=== PATIENT | female | born 1995 | race African-American/Black ===

== ENCOUNTER 2021-03-09 12:35 | Emergency (ER) | payer BC ==
[2021-03-09 12:40] VITALS: TEMP 97.9
[2021-03-09] MEDS ORDERED: SODIUM CHLORIDE 0.9% 1,000 ML IV STA (12:46)
--- NOTE | 2021-03-09 12:46 | ED ---
General Adult HPI - General Chief complaint: Abdominal Pain Stated complaint: Vag Bleeding, 5wks preg Time Seen by Provider: 03/09/21 12:44 Source: patient Mode of arrival: ambulatory Limitations: no limitations - History of Present Illness Initial comments: 25-year-old female, 5 weeks , presents to the emergency department with a chief complaint of vaginal bleeding and abdominal cramping. Patient reports the cramping is mostly located in the lower abdominal region without any radiation. Patient reports the symptoms started since yesterday. She denies any alleviating or aggravating symptoms. She also reports about 2 hours ago she noted a pink color after urinating. Patient also reports she noticed the same color when she was wiping. However, she does not have any profuse vaginal bleeding. She denies any dysuria, increased urgency or frequency. Denies any nausea or vomiting or diarrhea. States she recently started taking vitamins. Her OB is Dr. Gasca from [place]. Patient is not concerned for STDs. Denies any other vaginal discharge, itching or foul smell. - Related Data Allergies Allergy/AdvReac Type Severity Reaction Status Date / Time No Known Allergies Allergy Verified 03/09/21 12:39 Review of Systems ROS Statement: Those systems with pertinent positive or pertinent negative responses have been documented in the HPI. ROS Other: All systems not noted in ROS Statement are negative. Past Medical History Past Medical History: Asthma History of Any Multi-Drug Resistant Organisms: None Reported Past Surgical History: No Surgical Hx Reported Past Psychological History: Anxiety Smoking Status: Never smoker Past Alcohol Use History: Occasional Past Drug Use History: None Reported General Exam Limitations: no limitations General appearance: alert, in no apparent distress Head exam: Present: atraumatic, normocephalic, normal inspection Eye exam: Present: normal appearance, PERRL, EOMI Pupils: Present: normal accommodation ENT exam: Present: normal exam, normal oropharynx, mucous membranes moist, TM's normal bilaterally, normal external ear exam Neck exam: Present: normal inspection, full ROM. Absent: tenderness, lymphadenopathy Respiratory exam: Present: normal lung sounds bilaterally. Absent: respiratory distress, wheezes, rales, rhonchi, stridor, chest wall tenderness, accessory muscle use Cardiovascular Exam: Present: regular rate, normal rhythm, normal heart sounds. Absent: systolic murmur GI/Abdominal exam: Present: soft, tenderness (Very mild, diffuse lower abdominal tenderness.). Absent: distended, guarding, rebound, rigid Speculum exam: Present: normal speculum exam, vaginal bleeding (Scant amount of vaginal bleeding), other (Closed cervical os). Absent: erythema, vaginal discharge By manual exam: Present: adnexal tenderness (Mild right-sided tenderness) Extremities exam: Present: normal inspection, full ROM, normal capillary refill. Absent: tenderness, pedal edema, joint swelling Back exam: Present: normal inspection, full ROM. Absent: tenderness, CVA tenderness (R), CVA tenderness (L), muscle spasm, paraspinal tenderness, vertebral tenderness Neurological exam: Present: alert, oriented X3, normal gait Psychiatric exam: Present: normal affect, normal mood Skin exam: Present: warm, dry, intact, normal color Course Vital Signs 03/09/21 03/09/21 12:36 16:59 Temperature 97.9 F Pulse Rate 91 87 Respiratory 20 16 Rate Blood Pressure 122/83 121/84 O2 Sat by Pulse 97 100 Oximetry Medical Decision Making - Medical Decision Making 25-year-old female, 5 weeks , presents to the emergency department with a chief complaint of vaginal bleeding and abdominal cramping. On physical examination, there was scant amount of vaginal bleeding noted with a closed cervical os. She did have some right-sided adnexal tenderness. CBC, CMP, UA unremarkable. Coags within normal limits. Serum Quant is 260. Ultrasound revealed no IUP. There is a complex mass at the right adnexa measuring 534 cm. Ectopic cannot be rule out. I consulted with Dr. Gonzalez who personally examined the patient and recommended methotrexate, single dose. Patient was given the medication according to pharmacy dosing. The patient will follow-up with her on Thursday. There were also be repeated laboratory work to monitor the hCG levels. Patient was advised to avoid any sexual intercourse, tampons or douching. Strict return parameters were thoroughly discussed patient was understanding and agreeable. Case discussed with - Lab Data Result diagrams: 03/09/21 13:01 03/09/21 13:01 Lab Results 03/09/21 03/09/21 03/09/21 Range/Units 13:01 13: 13:01 WBC 8.9 (3.8-10.6) k/uL RBC 4.33 (3.80-5.40) m/uL Hgb 12.6 (11.4-16.0) gm/dL Hct 36.5 (34.0-46.0) % MCV 84.2 (80.0-100.0) fL MCH 29.2 (25.0-35.0) pg MCHC 34.7 (31.0-37.0) g/dL RDW 13.1 (11.5-15.5) % Plt Count 342 (150-450) k/uL MPV 7.6 Neutrophils % 56 % Lymphocytes % 28 % Monocytes % 5 % Eosinophils % 9 % Basophils % 1 % Neutrophils # 5.0 (1.3-7.7) k/uL Lymphocytes # 2.5 (1.0-4.8) k/uL Monocytes # 0.5 (0-1.0) k/uL Eosinophils # 0.8 H (0-0.7) k/uL Basophils # 0.1 (0-0.2) k/uL PT (9.0-12.0) sec INR (<1.2) APTT (22.0-30.0) sec Sodium 135 L (137-145) mmol/L Potassium 3.8 (3.5-5.1) mmol/L Chloride 102 (98-107) mmol/L Carbon Dioxide 26 (22-30) mmol/L Anion Gap 7 mmol/L BUN 12 (7-17) mg/dL Creatinine 0.69 (0.52-1.04) mg/dL Est GFR (CKD-EPI)AfAm >90 (>60 ml/min/1.73 sqM) Est GFR (CKD-EPI)NonAf >90 (>60 ml/min/1.73 sqM) Glucose 98 (74-99) mg/dL Calcium 9.1 (8.4-10.2) mg/dL Total Bilirubin 0.5 (0.2-1.3) mg/dL AST 24 (14-36) U/L ALT 15 (4-34) U/L Alkaline Phosphatase 43 (38-126) U/L Total Protein 7.8 (6.3-8.2) g/dL Albumin 4.6 (3.5-5.0) g/dL HCG, Quant 259.8 mIU/mL Urine Color Light Yellow Urine Appearance Clear (Clear) Urine pH 5.0 (5.0-8.0) Ur Specific [place] 1.012 (1.001-1.035) Urine Protein Negative (Negative) Urine Glucose (UA) Negative (Negative) Urine Ketones Negative (Negative) Urine Blood Small H (Negative) Urine Nitrite Negative (Negative) Urine Bilirubin Negative (Negative) Urine Urobilinogen <2.0 (<2.0) mg/dL Ur Leukocyte Esterase Negative (Negative) Urine RBC <1 (0-5) /hpf Urine WBC <1 (0-5) /hpf Ur Squamous Epith Cells 1 (0-4) /hpf Urine Bacteria Occasional H (None) /hpf Hyaline Casts 1 (0-2) /lpf Urine Mucus Rare H (None) /hpf Trichomonas Ag (Rapid) (Negative) Blood Type Blood Type Recheck Bld Type Recheck Status Antibody Screen Spec Expiration Date 03/09/21 03/09/21 03/09/21 Range/Units 13:01 13:01 15:01 WBC (3.8-10.6) k/uL RBC (3.80-5.40) m/uL Hgb (11.4-16.0) gm/dL Hct (34.0-46.0) % MCV (80.0-100.0) fL MCH (25.0-35.0) pg MCHC (31.0-37.0) g/dL RDW (11.5-15.5) % Plt Count (150-450) k/uL MPV Neutrophils % % Lymphocytes % % Monocytes % % Eosinophils % % Basophils % % Neutrophils # (1.3-7.7) k/uL Lymphocytes # (1.0-4.8) k/uL Monocytes # (0-1.0) k/uL Eosinophils # (0-0.7) k/uL Basophils # (0-0.2) k/uL PT 10.5 (9.0-12.0) sec INR 1.0 (<1.2) APTT 23.6 (22.0-30.0) sec Sodium (137-145) mmol/L Potassium (3.5-5.1) mmol/L Chloride (98-107) mmol/L Carbon Dioxide (22-30) mmol/L Anion Gap mmol/L BUN (7-17) mg/dL Creatinine (0.52-1.04) mg/dL Est GFR (CKD-EPI)AfAm (>60 ml/min/1.73 sqM) Est GFR (CKD-EPI)NonAf (>60 ml/min/1.73 sqM) Glucose (74-99) mg/dL Calcium (8.4-10.2) mg/dL Total Bilirubin (0.2-1.3) mg/dL AST (14-36) U/L ALT (4-34) U/L Alkaline Phosphatase (38-126) U/L Total Protein (6.3-8.2) g/dL Albumin (3.5-5.0) g/dL HCG, Quant mIU/mL Urine Color Urine Appearance (Clear) Urine pH (5.0-8.0) Ur Specific [place] (1.001-1.035) Urine Protein (Negative) Urine Glucose (UA) (Negative) Urine Ketones (Negative) Urine Blood (Negative) Urine Nitrite (Negative) Urine Bilirubin (Negative) Urine Urobilinogen (<2.0) mg/dL Ur Leukocyte Esterase (Negative) Urine RBC (0-5) /hpf Urine WBC (0-5) /hpf Ur Squamous Epith Cells (0-4) /hpf Urine Bacteria (None) /hpf Hyaline Casts (0-2) /lpf Urine Mucus (None) /hpf Trichomonas Ag (Rapid) Negative (Negative) Blood Type A Positive Blood Type Recheck No Previous Record Bld Type Recheck Status CABO Indicated Antibody Screen NEGATIVE Spec Expiration Date 03/12/20212300 Disposition Clinical Impression: Ectopic Disposition: HOME SELF-CARE Condition: Stable Instructions (If sedation given, give patient instructions): Ectopic (DC) Additional Instructions: Avoid any sexual intercourse, tampons or douching. Follow-up with . Return to emergency department if symptoms worsen. Is patient prescribed a controlled substance at d/c from ED?: No Referrals: Richard Adkins MD [Primary Care Provider] - 1-2 days Dianne Gonzalez MD [STAFF PHYSICIAN] - 1-2 days Time of Disposition: 18:33
[2021-03-09 13:19] LABS: Basophils # (A) 0.1 k/uL (0-0.2); Basophils % (A) 1 %; Eosinophils # (A) 0.8 k/uL (0-0.7); Eosinophils % (A) 9 %; HCT 36.5 % (34.0-46.0); HGB 12.6 gm/dL (11.4-16.0); Lymphocytes # (A) 2.5 k/uL (1.0-4.8); Lymphocytes % (A) 28 %; MCH 29.2 pg (25.0-35.0); MCHC 34.7 g/dL (31.0-37.0); MCV 84.2 fL (80.0-100.0); Mean Platelet Volume 7.6; Monocytes # (A) 0.5 k/uL (0-1.0); Monocytes % (A) 5 %; Neutrophils % (A) 56 %; Platelet Count 342 k/uL (150-450); RBC 4.33 m/uL (3.80-5.40); RDW 13.1 % (11.5-15.5); WBC 8.9 k/uL (3.8-10.6)
[2021-03-09 13:27] LABS: Partial Thromboplastin Time 23.6 sec (22.0-30.0); Prothrombin Time 10.5 sec (9.0-12.0)
[2021-03-09 13:32] LABS: Appearance,Urine Clear (Clear); Bacteria,Urine Occasional /hpf; Bilirubin,Urine Negative (Negative); Blood,Urine Small (Negative); Color,Urine Light Yellow; Glucose,Urine (UA) Negative (Negative); Hyaline Casts,Urine 1 /lpf (0-2); Ketones,Urine Negative (Negative); Leukocyte Esterase,Urine Negative (Negative); Mucus,Urine Rare /hpf; Nitrite,Urine Negative (Negative); Protein,Urine Negative (Negative); RBC,Urine <1 /hpf (0-5); Specific Gravity,Urine 1.012 (1.001-1.035); Squamous Epithelial Cell,Urine 1 /hpf (0-4); Urobilinogen,Urine <2.0 mg/dL (<2.0); WBC,Urine <1 /hpf (0-5)
[2021-03-09 13:52] LABS: ALT 15 U/L (4-34); AST 24 U/L (14-36); African American GFR (CKD) >90 (>60 ml/min/1.73 sqM); Albumin 4.6 g/dL (3.5-5.0); Alkaline Phosphatase 43 U/L (38-126); Anion Gap 7 mmol/L; Blood Urea Nitrogen 12 mg/dL (7-17); Calcium 9.1 mg/dL (8.4-10.2); Carbon Dioxide 26 mmol/L (22-30); Chloride 102 mmol/L (98-107); Glucose 98 mg/dL (74-99); Non-African American GFR(CKD) >90 (>60 ml/min/1.73 sqM); Potassium 3.8 mmol/L (3.5-5.1); Sodium 135 mmol/L (137-145); Total Bilirubin 0.5 mg/dL (0.2-1.3); Total Protein 7.8 g/dL (6.3-8.2)
[2021-03-09 13:53] LABS: HCG,Quantitative Serum 259.8 mIU/mL
--- NOTE | 2021-03-09 14:01 | US ---
EXAMINATION TYPE: Transabdominal DATE OF EXAM: 03/09/2021 1:36 PM COMPARISON: NONE CLINICAL HISTORY: 5wk preg, vag bleed, lower abd cramping. cramping, vaginal bleeding, right pelvic pain EXAM PERFORMED: Transvaginal (TV) and Transabdominal (TA) EXAM MEASUREMENTS: GESTATIONAL AGE / DATING Physician Established: Not yet established Dates by LMP: (5 weeks/1 days) EDC: 11/08/21 Dates by First Scan: No previous this is first scan Dates by Current Scan for: No IUP seen at this time MATERNAL ANATOMY Uterus: 7.8 x 4.2 x 6.1cm Right Ovary: 2.6 x 1.6 x 2.0cm Left Ovary: 3.3 x 2.1 x 2.8cm Post CDS / Adnexa: complex mass-like area right adnexa = 5.0 x 2.9 x 4.0cm Presence of free fluid: yes Presence of corpus luteal cyst: hypoechoic area left ovary = 2.1 x 1.6 x 2.3cm GESTATION / SURVEY IUP: No IUP seen at this time Date of LMP: 02/01/21 Beta HcG (if available): Not available at this time No evidence of IUP at this time. small fluid collection noted within endometrium = 0.9cm. Complex mas s like area right adnexa = 5.0 x 2.9 x 4.0cm. free fluid posterior cul-de-sac IMPRESSION: Small amount of fluid present along the endometrium. Indeterminate right adnexal mass, no increased c olor flow, I cannot exclude ectopic .
[2021-03-09 17:00] VITALS: BP 121/84; PULSE 87; RESP 16
--- NOTE | 2021-03-09 17:06 | P.CON ---
Consult Note - . Consult date: 03/09/21 Assessment/Plan:: This is a 25-year-old female 1 para 0 last mesh appeared 02/01/2021 at approximate 5 weeks gestational age. Last night after working out at the gym patient noticed a crampy lower abdominal pain. It continued through the night. This morning she began with bright red vaginal bleeding and presented to the emergency room. Sonogram reveals negative intrauterine cavity, minimal free fluid, 5 x 3 x 4 cm complex right adnexal mass, no obvious fetus, no heart rate. Consultation is requested ruling rule out ectopic . Past medical history is essentially negative. Past surgical history is negative. Social history patient is a nonsmoker, she denies alcohol or drug use. She is single. Oncologic history menarche began at the age of 10, 28 day interval, 6-7 day duration. She denies history of gonorrhea, chlamydia, HSV or HPV infections. She is using nothing for contraception at this time. Current medications none. ALLERGIES none known. On exam patient is 5 foot 5 inches, 75 kg, vital signs are stable including temperature 97.9, pulse 99, respirations 20, blood pressure 122/83. HEENT examination is negative for thyromegaly. Chest is clear in all [place] anteriorly and posteriorly. Cardiac exam reveals regular rate and rhythm with no murmur click or rub. Abdomen is soft, nondistended, minimal tenderness bilateral lower quadrants and in the suprapubic region, 2 out of 10. No rebound or guarding. No CVA tenderness. Extremities reveal no edema. On pelvic exam cervix is nulliparous. There is no active bleeding currently in the vagina, although patient states that she did pass a fair amount of bleeding and clots earlier today. Uterus is anteverted anteflex, mobile and small. Right adnexal region is full, no exquisite pain, patient reports 2 out of 10 tenderness on the right. Left adnexa is negative. Blood type is A+. Hemoglobin 12.6. General chemistry labs are all within normal limits. Impression: 5 week gestation by last menstrual period, uterus devoid of gestational sac, with a complex right adnexal mass measuring 5 x 3 x 4 cm. Patient does not have a surgical abdomen. She does not appear to be in distress. I have discussed with her the option of methotrexate and she is in agreement with this plan. Methotrexate will be ordered from the pharmacy at this time, 50 mg/m. Patient understands that she needs to follow-up in the office with me for repeat beta hCG studies through the week. She will call my office Thursday morning and establish care. She will return with any exquisite or intense pain. She will abstain from intercourse at this time to prevent ovarian torsion. All risks and benefits of this regime have been discussed in detail.
[2021-03-09] MEDS ORDERED: METHOTREXATE SODIUM (PF) 25 MG/ML 2 ML VIAL IM ONE (18:45)
[2021-03-12 13:47] LABS: C. trachomatis,PCR Negative (Neg,Equiv); Chlamydia trachomatis Source Cervix; N. gonorrhoeae,PCR Negative (Neg,Equiv); Neisseria Source Cervix
== END 2021-03-09 18:52 | disposition home or self-care (01) ==
LOC: EC 12:35
DX: O00.90 Unspecified ectopic pregnancy without intrauterine pregnancy (principal); O99.511 Diseases of the respiratory system complicating pregnancy, first trimester; J45.909 Unspecified asthma, uncomplicated; Z3A.01 Less than 8 weeks gestation of pregnancy
CPT/HCPCS: 36415; 86900; 86901; 80053; 85025; 85610; 85730; 86850; 81001; 84702; 87808; 87491; 87591; 87070; 76801; 76817; 99284; 96372; 96360; J9260

== ENCOUNTER 2021-03-11 10:27 | Emergency (ER) | payer BC ==
[2021-03-11 10:34] VITALS: RESP 18
[2021-03-11] MEDS ORDERED: SODIUM CHLORIDE 0.9% 1,000 ML IV ONE (11:00)
[2021-03-11 12:01] LABS: Basophils % (A) 0 %; Eosinophils # (A) 0.4 k/uL (0-0.7); Eosinophils % (A) 3 %; HCT 39.5 % (34.0-46.0); HGB 13.2 gm/dL (11.4-16.0); Lymphocytes # (A) 1.6 k/uL (1.0-4.8); Lymphocytes % (A) 14 %; MCH 28.3 pg (25.0-35.0); MCHC 33.5 g/dL (31.0-37.0); MCV 84.5 fL (80.0-100.0); Mean Platelet Volume 7.1; Monocytes # (A) 0.4 k/uL (0-1.0); Monocytes % (A) 4 %; Neutrophils # (A) 8.7 k/uL (1.3-7.7); Neutrophils % (A) 78 %; Platelet Count 332 k/uL (150-450); RBC 4.67 m/uL (3.80-5.40); RDW 13.3 % (11.5-15.5); WBC 11.1 k/uL (3.8-10.6)
[2021-03-11 12:10] LABS: ALT 19 U/L (4-34); AST 27 U/L (14-36); African American GFR (CKD) >90 (>60 ml/min/1.73 sqM); Alkaline Phosphatase 55 U/L (38-126); Anion Gap 10 mmol/L; Blood Urea Nitrogen 9 mg/dL (7-17); Calcium 9.2 mg/dL (8.4-10.2); Carbon Dioxide 25 mmol/L (22-30); Chloride 103 mmol/L (98-107); Glucose 92 mg/dL (74-99); Non-African American GFR(CKD) >90 (>60 ml/min/1.73 sqM); Potassium 3.9 mmol/L (3.5-5.1); Sodium 138 mmol/L (137-145); Total Bilirubin 0.8 mg/dL (0.2-1.3); Total Protein 8.6 g/dL (6.3-8.2)
--- NOTE | 2021-03-11 12:14 | ED ---
Abdominal Pain HPI - General Chief Complaint: Abdominal Pain Stated Complaint: revisit - vag bleeding Time Seen by Provider: 03/11/21 10:47 Source: patient, RN notes reviewed Mode of arrival: ambulatory Limitations: no limitations - History of Present Illness Initial Comments: 25-year-old female presents emergency Department chief complaint abdominal pain. Patient states she seen here 2 days ago diagnosed with ectopic . She is evaluated by Dr. Gonzalez, patient did receive methotrexate. Patient states she attempted to call office for 2 hours today unable to get through the office. Patient presents to the emergency room with worsening pain. Patient states pain is diffuse. No dysuria no hematuria she states she has some bleeding other day that brought her in which she's not having worsening bleeding. Patient's states this was her . Patient denies any other complaints - Related Data Allergies Allergy/AdvReac Type Severity Reaction Status Date / Time No Known Allergies Allergy Verified 03/11/21 10:34 Review of Systems ROS Statement: Those systems with pertinent positive or pertinent negative responses have been documented in the HPI. ROS Other: All systems not noted in ROS Statement are negative. Past Medical History Past Medical History: Asthma History of Any Multi-Drug Resistant Organisms: None Reported Past Surgical History: No Surgical Hx Reported Past Psychological History: Anxiety Smoking Status: Never smoker Past Alcohol Use History: Occasional Past Drug Use History: None Reported General Exam Limitations: no limitations General appearance: alert, in no apparent distress Head exam: Present: atraumatic, normocephalic, normal inspection ENT exam: Present: normal exam, normal oropharynx, mucous membranes moist Neck exam: Present: normal inspection. Absent: tenderness, lymphadenopathy Respiratory exam: Present: normal lung sounds bilaterally. Absent: respiratory distress, wheezes, rales, rhonchi, stridor Cardiovascular Exam: Present: regular rate, normal rhythm, normal heart sounds. Absent: systolic murmur, diastolic murmur, rubs, gallop, clicks GI/Abdominal exam: Present: soft, tenderness (Monitor lower, diffuse mild tenderness including upper abdomen.), normal bowel sounds. Absent: distended, guarding, rebound, rigid Back exam: Absent: CVA tenderness (R), CVA tenderness (L) Neurological exam: Present: alert, oriented X3 Skin exam: Present: warm, dry, intact, normal color. Absent: rash Course Vital Signs 03/11/21 03/11/21 10:29 11:33 Temperature 97.9 F Pulse Rate 92 Respiratory 18 18 Rate Blood Pressure 116/80 O2 Sat by Pulse 99 Oximetry Medical Decision Making - Medical Decision Making 25-year-old female presented emergency from for recheck miscarriage. Patient had been diagnosed with ectopic was given methotrexate reveal ultrasound shows decrease in size and right adnexa region, no free fluid noted labs reviewedand family hCG is came down from 256 to 82. Patient does not have a surgical abdomen. Vitals are stable. - Lab Data Result diagrams: 03/11/21 11:40 03/11/21 11:40 Lab Results 03/11/21 03/11/21 03/11/21 Range/Units 11:40 11:40 11:40 WBC 11.1 H (3.8-10.6) k/uL RBC 4.67 (3.80-5.40) m/uL Hgb 13.2 (11.4-16.0) gm/dL Hct 39.5 (34.0-46.0) % MCV 84.5 (80.0-100.0) fL MCH 28.3 (25.0-35.0) pg MCHC 33.5 (31.0-37.0) g/dL RDW 13.3 (11.5-15.5) % Plt Count 332 (150-450) k/uL MPV 7.1 Neutrophils % 78 % Lymphocytes % 14 % Monocytes % 4 % Eosinophils % 3 % Basophils % 0 % Neutrophils # 8.7 H (1.3-7.7) k/uL Lymphocytes # 1.6 (1.0-4.8) k/uL Monocytes # 0.4 (0-1.0) k/uL Eosinophils # 0.4 (0-0.7) k/uL Basophils # 0.0 (0-0.2) k/uL Sodium 138 (137-145) mmol/L Potassium 3.9 (3.5-5.1) mmol/L Chloride 103 (98-107) mmol/L Carbon Dioxide 25 (22-30) mmol/L Anion Gap 10 mmol/L BUN 9 (7-17) mg/dL Creatinine 0.65 (0.52-1.04) mg/dL Est GFR (CKD-EPI)AfAm >90 (>60 ml/min/1.73 sqM) Est GFR (CKD-EPI)NonAf >90 (>60 ml/min/1.73 sqM) Glucose 92 (74-99) mg/dL Calcium 9.2 (8.4-10.2) mg/dL Total Bilirubin 0.8 (0.2-1.3) mg/dL AST 27 (14-36) U/L ALT 19 (4-34) U/L Alkaline Phosphatase 55 (38-126) U/L Total Protein 8.6 H (6.3-8.2) g/dL Albumin 5.0 (3.5-5.0) g/dL HCG, Quant 82.3 mIU/mL Urine Color Yellow Urine Appearance Cloudy H (Clear) Urine pH 7.0 (5.0-8.0) Ur Specific [place] 1.017 (1.001-1.035) Urine Protein Negative (Negative) Urine Glucose (UA) Negative (Negative) Urine Ketones Negative (Negative) Urine Blood Moderate H (Negative) Urine Nitrite Negative (Negative) Urine Bilirubin Negative (Negative) Urine Urobilinogen <2.0 (<2.0) mg/dL Ur Leukocyte Esterase Negative (Negative) Urine RBC 3 (0-5) /hpf Urine WBC 1 (0-5) /hpf Ur Squamous Epith Cells 4 (0-4) /hpf Urine Bacteria Moderate H (None) /hpf Urine Mucus Few H (None) /hpf Disposition Clinical Impression: Ectopic , Abdominal pain Disposition: HOME SELF-CARE Condition: Stable Instructions (If sedation given, give patient instructions): Abdominal Pain (ED) Additional Instructions: Please return to the Emergency Department if symptoms worsen or any other conc erns. Is patient prescribed a controlled substance at d/c from ED?: No Referrals: Richard Adkins MD [Primary Care Provider] - 1-2 days Dianne Gonzalez MD [STAFF PHYSICIAN] - 1-2 days Time of Disposition: 13:19
[2021-03-11 12:16] LABS: Appearance,Urine Cloudy (Clear); Bacteria,Urine Moderate /hpf; Bilirubin,Urine Negative (Negative); Blood,Urine Moderate (Negative); Color,Urine Yellow; Glucose,Urine (UA) Negative (Negative); Ketones,Urine Negative (Negative); Leukocyte Esterase,Urine Negative (Negative); Mucus,Urine Few /hpf; Nitrite,Urine Negative (Negative); Protein,Urine Negative (Negative); RBC,Urine 3 /hpf (0-5); Specific Gravity,Urine 1.017 (1.001-1.035); Squamous Epithelial Cell,Urine 4 /hpf (0-4); Urobilinogen,Urine <2.0 mg/dL (<2.0); WBC,Urine 1 /hpf (0-5)
[2021-03-11 12:26] LABS: HCG,Quantitative Serum 82.3 mIU/mL
--- NOTE | 2021-03-11 12:26 | US ---
EXAMINATION TYPE: Transabdominal DATE OF EXAM: 03/11/2021 12:04 PM COMPARISON: NONE CLINICAL HISTORY: Ectopic, worsening pain. Cramping worse ectopic started methotrexate on thursday EXAM PERFORMED: Transvaginal (TV) and Transabdominal (TA) EXAM MEASUREMENTS: GESTATIONAL AGE / DATING Dates by LMP: (5 weeks/3 days) EDC: 11/08/2021 MATERNAL ANATOMY Uterus: 7.2 x 4.2 x 5.2 cm Right Ovary: 3.0 x 1.8 x 2.4 cm Left Ovary: 3.4 x 1.9 x 1.8 cm Post CDS / Adnexa: Complex area seen right adnexa 3.1 x 2.5 cm Presence of free fluid: Small amount Presence of corpus luteal cyst: no Presence of subchorionic bleed: no GESTATION / SURVEY IUP: No IUP seen Beta HcG (if available): Not available at this time IMPRESSION: No evidence for intrauterine at this time. 3 possibilities exist which include ectopic preg jason, missed spontaneous as well as normal early IUP. Correlate clinically serial beta hCG and/or ultrasound.
[2021-03-11 13:45] VITALS: BP 105/69; PULSE 83; TEMP 99
== END 2021-03-11 13:44 | disposition home or self-care (01) ==
LOC: EC 10:27
DX: O00.90 Unspecified ectopic pregnancy without intrauterine pregnancy (principal); O99.511 Diseases of the respiratory system complicating pregnancy, first trimester; J45.909 Unspecified asthma, uncomplicated; Z3A.01 Less than 8 weeks gestation of pregnancy
CPT/HCPCS: 36415; 76801; 76817; 80053; 81001; 84702; 85025; 96360; 99284

== ENCOUNTER → 2021-03-12 | Outpatient (CLI) | payer BC | END | disposition home or self-care (01) | LOC: LABWHC1 07:12 | PROVIDERS: ATTEND Obstetrics & Gynecology | DX: O00.109 Unspecified tubal pregnancy without intrauterine pregnancy (principal); Z3A.00 Weeks of gestation of pregnancy not specified | CPT/HCPCS: 36415; 84702 ==

== ENCOUNTER → 2021-03-15 | Outpatient (CLI) | payer BC ==
[2021-03-15 18:51] LABS: HCT 34.7 % (37.2-46.3); HGB 10.9 g/dL (12.0-15.0); MCH 27.9 pg (27.0-32.0); MCHC 31.4 g/dL (32.0-37.0); MCV 88.7 fL (80.0-97.0); Platelet Count 330 X 10*3/uL (140-440); RBC 3.91 X 10*6/uL (4.10-5.20); RDW 12.6 % (11.5-14.5); WBC 5.56 X 10*3/uL (4.50-10.00)
[2021-03-15 22:50] LABS: African American GFR (CKD) 139.6 (60.0-200.0); Non-African American GFR(CKD) 120.4 (60.0-200.0)
[2021-03-15 22:58] LABS: HCG,Quantitative Serum 13.7 mIU/mL
== END | disposition home or self-care (01) ==
LOC: LABWHC1 07:06
PROVIDERS: ATTEND Obstetrics & Gynecology
DX: O00.109 Unspecified tubal pregnancy without intrauterine pregnancy (principal); Z3A.00 Weeks of gestation of pregnancy not specified
CPT/HCPCS: 36415; 82565; 84450; 84460; 84520; 84702; 85027

== ENCOUNTER → 2021-04-19 | Outpatient (CLI) | payer BC ==
--- NOTE | 2021-04-22 08:32 | USB ---
Reason for exam: clinical finding. History: Patient is nulliparous. Physical Findings: Nurse Summary: dense tissue (nurse ms). US Breast Limited LT Technologist: Tata Pate Left limited breast ultrasound including focal area of concern, retroareolar and axilla demonstrates a 2.6 x 2.6 x 1.4cm lobular, solid, hypoechoic, vascular lesion at 9 o'clock. Scanned 8-10 o'clock. These results were verbally communicated with the patient and result sheet given to the patient on 04/19/21. ASSESSMENT: Suspicious, BI-RAD 4 RECOMMENDATION: Surgical consultation of the left breast. Called Dr. Gonzalez's office with mammographic findings and has scheduled an appointment for the patient for 05/24/21 at 4:[address] Shah. PRELIMINARY REPORT CALLED AND FAXED TO DR. SHAH ON 04/22/21.
== END | disposition home or self-care (01) ==
LOC: RADUSWWP 14:56
PROVIDERS: ATTEND Obstetrics & Gynecology
DX: N64.59 Other signs and symptoms in breast (principal)

== ENCOUNTER → 2021-05-24 | Outpatient (CLI) | payer BC ==
[2021-05-24 16:05] VITALS: BP 108/71; PULSE 69; RESP 14; TEMP 98.3
--- NOTE | 2021-05-24 16:30 | P.GSHP ---
History of Present Illness H&P Date: 05/24/21 Chief Complaint: mass in her left breast Theresa is a 25 year old female seen in consultation for Dr. Gonzalez who noted a lump in her left breast approximately 2 months ago. She had a recent ectopic and felt the lump just prior to knowing she was . She was 5 weeks and was treated with methotrexate. The lump is not tender. It has not changed in size. She had a recent ultrasound in 6 days for initial 21 which revealed a 2.6 x 2.6 x 1.4 cm lobulated lesion at the 9 o'clock position. It does not fluctuate with her menstrual periods. She has not had any trauma or infection in her breast. She is not complaining of any other lumps masses or nodules in either breast. She is not complaining of any nipple discharge or skin changes. Caffeine: 1 cup/week; she was using a supplement called pre-workout which had caffeine or prior to going to the gymnasium she stopped this March Nicotine: Negative control pills: stopped them 2014 used them for 4 years, used depo shot stopped that 1 1/2 years ago Family history: maternal grandmother: lung bone and skin and brain cancer Hormonal History: menarche: 9 (ectopic 2 months ago) LMP: 1 week ago, regular BCP: none Surgical history: EGD Patient chief remove Medical history: Asthma Social history: Nicotine: Negative Alcohol: Occasional Drugs: Negative - Constitutional Constitutional: Reports sweats - EENT Eyes: denies blurred vision, denies pain Ears: deny: decreased hearing, tinnitus Ears, nose, mouth and throat: Denies headache, Denies sore throat - Breasts Breasts: bilateral: as per HPI - Cardiovascular Cardiovascular: Denies chest pain, Denies shortness of breath - Respiratory Respiratory: Denies cough, Denies 7 - Gastrointestinal Gastrointestinal: Denies abdominal pain, Denies diarrhea, Denies nausea, Denies vomiting - Genitourinary (Female) Genitourinary: Denies dysuria, Denies hematuria - Menstruation Menstruation: Reports period normal - Musculoskeletal Musculoskeletal: Denies myalgias - Integumentary Comment: Eczema Integumentary: Denies pruritus, Denies rash - Neurological Neurological: Denies numbness, Denies weakness - Psychiatric Psychiatric: Reports anxiety, Denies depression - Endocrine Endocrine: Denies fatigue, Denies weight change - Hematologic/Lymphatic Comment: none - Allergic/Immunologic Allergic/Immunologic: Reports seasonal allergies Past Medical History Past Medical History: Asthma History of Any Multi-Drug Resistant Organisms: None Reported Past Surgical History: No Surgical Hx Reported Additional Past Surgical History / Comment(s): endoscopy procedure at approx age 16 for stomach pain; wisdom teeth; Past Anesthesia/Blood Transfusion Reactions: No Reported Reaction Past Psychological History: Anxiety Smoking Status: Never smoker Past Alcohol Use History: Rare Past Drug Use History: None Reported Medications and Allergies Home Medications Medication Instructions Recorded Confirmed Type Pnv,Calcium 72/Iron/Folic Acid 1 each PO QAM 05/24/21 05/24/21 History [ Plus Tablet] Allergies Allergy/AdvReac Type Severity Reaction Status Date / Time No Known Allergies Allergy Verified 05/24/21 15:56 Surgical - Exam Vital Signs Temp Pulse Resp BP Pulse Ox 98.3 F 69 14 108/71 98 05/24/21 15:57 05/24/21 15:57 05/24/21 15:57 05/24/21 15:57 05/24/21 15:57 BMI 27.5 - General no distress - Eyes normal ocular movement - ENT no hearing loss - Neck no masses, trachea midline - Respiratory normal expansion, normal respiratory effort - Cardiovascular Rhythm: regular Heart Sounds: normal: S1, S2 - Abdomen Abdomen: soft - Integumentary normal turgor - Neurologic no disoriented, no combative - Musculoskeletal normal gait - Psychiatric oriented to time, oriented to person, oriented to place, speech is normal, memory intact Breast exam: BRA: 36DD inspection: Bilateral grade 2 ptosis Palpation: Right breast: Multi-positional exam fibrocystic changes, no dominant masses or nodules of concern Right axilla: No adenopathy of concern Left breast: Multi-positional exam periareolar region at 9:00 approximately 2 x 2 centimeters firm nodule No other dominant masses or nodules of concern Left axilla: No adenopathy of concern Results Ultrasound results reviewed Assessment and Plan Assessment: Impression: 1. Mass left breast 2. Abnormal left breast ultrasound 3. Fibrocystic breast changes 4. Recent ectopic Plan: 1. Ultrasound-guided core biopsy lesion left breast 2. Follow-up after ultrasound-guided core biopsy Cc: Dr. Gonzalez
== END ==
LOC: WWCWWP 15:43
PROVIDERS: ATTEND Surgery
DX: N63.20 Unspecified lump in the left breast, unspecified quadrant (principal); N60.12 Diffuse cystic mastopathy of left breast; J45.909 Unspecified asthma, uncomplicated; Z87.59 Personal history of other complications of pregnancy, childbirth and the puerperium

== ENCOUNTER → 2021-06-12 | Day surgery (SDC) | payer BC ==
[2021-06-12 12:15] VITALS: BP 115/78; PULSE 75; RESP 18; TEMP 98.2
--- NOTE | 2021-06-12 14:12 | USB ---
EXAMINATION TYPE: US biopsy breast VAD LT DATE OF EXAM: 06/12/2021 CLINICAL HISTORY: R92.8 Abnormal Mammogram. TECHNIQUE: Ultrasound guided vaccuum assisted core biopsy of left breast. COMPARISON: NONE FINDINGS: The ultrasound guided core biopsy procedure was explained to the patient. The risks, benefits, alternatives were discussed. An informed consent was then obtained. Timeout was performed. The patient was placed in supine positioning for imaging and for the procedure. The overlying skin was prepped with betadine and sterilely draped in usual sterile fashion. Lidocaine 1% was used as anesthetic into the skin and deeper breast tissue up to area of concern in the breast. A small skin diogenes was made with surgical scalpel. Under ultrasound guidance, a 12-gauge vacuum assisted biopsy device was used to obtain 6 core samples. Post biopsy, the lesion is well visualized. A clip was not placed. Good hemostasis was obtained with direct pressure. Discharge instructions were discussed with the patient. The patient will follow up with the referring physician for results. The patient tolerated the procedure well without any immediate complication. The patient was discharged to home in stable condition. IMPRESSION: 1. Successful ultrasound guided biopsy left breast. Recommendations: 1. Recommendations are pending pathology results. Pathology Results: Benign LEFT BREAST, NINE O' CLOCK POSITION, CORE BIOPSY: Benign fibroadenoma. Recommendation Follow up ultrasound of the left breast in 6 months. MANNIE
== END ==
LOC: RADUSWWP 11:45
PROVIDERS: ATTEND Surgery
DX: D24.2 Benign neoplasm of left breast (principal)
CPT/HCPCS: 88305; 19083; J2001

== ENCOUNTER → 2021-06-28 | Outpatient (CLI) | payer BC ==
--- NOTE | 2021-06-28 15:56 | P.PN ---
Subjective Progress Note Date: 06/28/21 Principal diagnosis: Fibroadenoma left breast Theresa is a 25 year old female status [place] [id number]. Pathology was consistent with a benign fibroadenoma. She tolerated the procedure with no difficulty. She has recently increased in size and the patient wishes it to be removed as it is easily palpable for her. This will be scheduled in the near future. Objective - Vital Signs Vital signs: Intake & Output 06/27/21 06/28/21 06/28/21 18:59 06:59 18:59 Weight 74.843 kg - Constitutional General appearance: Present: cooperative - EENT Eyes: Present: EOMI ENT: Present: hearing grossly normal - Integumentary Integumentary Comment(s): biopsy site clean and dry, no evidence of hematoma or infection Assessment and Plan Assessment: Impression: Fibroadenoma left breast Plan: Operative removal of fibroadenoma as this is increasing in size and uncomfortable for the patient CC: Dr. Adkins
[2021-06-28 16:08] VITALS: BP 102/69; PULSE 77; RESP 16; TEMP 98.2
== END ==
LOC: WWCWWP 15:37
PROVIDERS: ATTEND Surgery
DX: D24.2 Benign neoplasm of left breast (principal)

== ENCOUNTER → 2021-09-06 | Outpatient (CLI) | payer OTHER ==
[2021-09-06 16:06] VITALS: BP 111/70; PULSE 73; RESP 18; TEMP 98.2
--- NOTE | 2021-09-06 16:15 | P.PN ---
Subjective Progress Note Date: 09/06/21 Principal diagnosis: left breast fibroadenoma Theresa is a 25 year old female seen in consultation for Dr. Gonzalez regarding a left breast nodule. She had a recent ectopic and felt the lump just prior to knowing she was . She was 5 weeks and was treated with methotrexate. The lump was not tender. It had not changed in size. She had an ultrasound of the left breast which revealed a 2.6 x 2.6 x 1.4 cm lobulated lesion at the 9 o'clock position. She has not had any trauma or infection in her breast. She was not complaining of any other lumps masses or nodules in either breast. She is not complaining of any nipple discharge or skin changes. She had a left breast core biopsy on 06-12-21 which was consistent with a fibroadneoma. The nodule in her left breast is not increased in size. Caffeine: 1 cup/week; she was using a supplement called pre-workout which had caffeine or prior to going to the gymnasium she stopped this March Nicotine: Negative control pills: stopped them 2014 used them for 4 years, used depo shot stopped that 2 years ago Family history: maternal grandmother: lung bone and skin and brain cancer Hormonal History: menarche: 9 (ectopic 2 months ago) LMP: now, regular BCP: none Surgical history: EGD wisdom teeth removed Medical history: Asthma Social history: Nicotine: Negative Alcohol: Occasional Drugs: Negative - Constitutional Constitutional: Reports sweats - EENT Eyes: denies blurred vision, denies pain Ears: deny: decreased hearing, tinnitus Ears, nose, mouth and throat: Denies headache, Denies sore throat - Breasts Breasts: bilateral: as per HPI - Cardiovascular Cardiovascular: Denies chest pain, Denies shortness of breath - Respiratory Respiratory: Denies cough - Gastrointestinal Gastrointestinal: Denies abdominal pain, Denies diarrhea, Denies nausea, Denies vomiting - Genitourinary (Female) Genitourinary: Denies dysuria, Denies hematuria - Menstruation Menstruation: Reports period normal - Musculoskeletal Musculoskeletal: Denies myalgias - Integumentary Comment: Eczema Integumentary: Denies pruritus, Denies rash - Neurological Neurological: Denies numbness, Denies weakness - Psychiatric Psychiatric: Reports anxiety, Denies depression - Endocrine Endocrine: Denies fatigue, Denies weight change - Hematologic/Lymphatic Comment: none - Allergic/Immunologic Allergic/Immunologic: Reports seasonal allergies Objective - Constitutional General appearance: Present: cooperative - EENT Eyes: Present: EOMI ENT: Present: hearing grossly normal - Neck Neck: Present: normal ROM - Respiratory Respiratory: bilateral: CTA - Cardiovascular Rhythm: regular Heart sounds: normal: S1, S2 - Gastrointestinal General gastrointestinal: Present: soft - Integumentary Integumentary: Present: normal turgor - Musculoskeletal Musculoskeletal: Present: gait normal - Psychiatric Psychiatric: Present: A&O x's 3, appropriate affect, intact judgment & insight - Additional findings Additional findings: Breast Exam: BRA: 34ED inspection: grade 2/3 ptosis bilateral palpation: right breast: Multi-positional exam fibrocystic changes no dominant masses or nodules of concern Right axilla: No adenopathy of concern Left breast: Multiple transitional exam periareolar region approximately 9:00 approximately 2 cm solid lesion consistent with fibroadenoma which was biopsied Left axilla: No adenopathy of concern Assessment and Plan Assessment: Impression: 1. Symptomatic fibroadenoma left breast 9:00 Plan: 1. Removal symptomatic fibroadenoma left breast 2. Possible onco- plastic tissue transfer Risks include but are not limited to bleeding, infection, reaction to the anesthetic. The patient understands and wishes to proceed. She understands this is not cancer is not precancer and she does not have to have it removed however she wishes it to be recessed dissected. Cc: , Dr. Gonzalez
== END ==
LOC: WWCWWP 15:56
PROVIDERS: ATTEND Surgery
DX: D24.2 Benign neoplasm of left breast (principal); J45.909 Unspecified asthma, uncomplicated

== ENCOUNTER 2021-09-24 09:56 | Day surgery (SDC) | payer BC, OTHER ==
[2021-09-20 13:34] VITALS: BMI 27.4
[~2021-09-24 09:56] MED LIST: DEXAMETHASONE SOD PHOSPHATE 4 MG/ML 1 ML VIAL IV ONE; HEPARIN SODIUM,PORCINE/PF 5,000 UNIT/0.5 ML SYRINGE SQ PRN; HYDROmorphone 0.5 MG/0.5 ML SYRINGE IVP PRN; LACTATED RINGERS 1,000 ML IV SCH; MIDAZOLAM 2 MG/2 ML VIAL IV PRN; ONDANSETRON 4 MG/2 ML VIAL IVP ONE; Pre Op ABX Message 1 EACH MISC MISCELLANE ONE; SCOPOLAMINE 1.5MG/72HR PATCH TRANSDERM ONE
[2021-09-24] MEDS ORDERED: LIDOCAINE 1% (10MG/ML) FOR IV START INTRADERMA ONE (10:33)
[2021-09-24] MEDS ORDERED: fentaNYL (PF) 50 MCG/ML 2 ML AMP ONE (11:35)
[2021-09-24] MEDS ORDERED: LIDOCAINE 1% INJ 10MG/ML (20 ML MDV) ONE (11:35)
[2021-09-24] MEDS ORDERED: PROPOFOL 10 MG/ML 20 ML VIAL IV ONE (11:35)
[2021-09-24] MEDS ORDERED: MIDAZOLAM 2 MG/2 ML VIAL ONE (11:35)
[2021-09-24] MEDS ORDERED: LIDOCAINE 1% INJ 10MG/ML (20 ML MDV) SQ ONE ×3 (12:00→12:30)
--- NOTE | 2021-09-24 12:27 | P.OP ---
Date of Procedure: 09/24/21 Preoperative Diagnosis: Fibroadenoma left breast Postoperative Diagnosis: Same Procedure(s) Performed: Excision fibroadenoma left breast Anesthesia: GENE Surgeon: Cleopatra Mitchell Estimated Blood Loss (ml): 15 IV fluids (ml): 400 Pathology: other (breast tissue) Condition: stable Disposition: same day Indications for Procedure: Symptomatic fibroadenoma left breast Operative Findings: Dense breast tissue Description of Procedure: There is a 26-year-old female who underwent a core biopsy of the lesion in the left breast. This is in the periareolar region. Biopsie was consistent with fibroadenoma. The fibroadenoma was painful and enlarged in size. The patient wished it to be removed. Patient was brought to the operating room. Following induction of anesthesia the left breast was prepped and draped in a sterile fashion. Periareolar incision was made and carried down to the palpable abnormality. Wide excision was performed. The lesion was approximately 2.5 x 1.5 cm in size. After we were assured that hemostasis was attained the deep tissues were closed using 3-0 Vicryl suture. The skin was closed using 4-0 Monocryl. The specimen was inked for orientation. T hung tolerated the procedure in stable condition. The specimen was sent to pathology.
[2021-09-24] MEDS ORDERED: LACTATED RINGERS 1,000 ML IV ONE (12:38)
[2021-09-24 12:52] VITALS: TEMP 96.8
--- NOTE | 2021-09-24 13:23 | P.DS ---
Providers Attending physician: Cleoparta Mitchell Primary care physician: Richard Adkins Plan - Discharge Summary Discharge Rx Participant: No New Discharge Prescriptions: No Action Ascorbic Acid [Vitamin C] 1,000 mg PO DAILY Pnv,Calcium 72/Iron/Folic Acid [ Plus Tablet] 1 each PO QAM Cetirizine HCl [Zyrtec] 10 mg PO DAILY Discharge Medication List Pnv,Calcium 72/Iron/Folic Acid [ Plus Tablet] 1 each PO QAM 05/24/21 [History] Cetirizine HCl [Zyrtec] 10 mg PO DAILY 06/07/21 [History] Ascorbic Acid [Vitamin C] 1,000 mg PO DAILY 09/20/21 [History] Follow up Appointment(s)/Referral(s): Cleopatra Mitchell MD [STAFF PHYSICIAN] - 1 Week Patient Instructions/Handouts: *Surgery [facility] - (Anesthesia) Discharge Instructions Outpatient Surgery Activity/Diet/Wound Care/Special Instructions: do not drive today may shower after [address] if taking narcotic pain medicine wear bra at all times until seen by Dr. De Guzman next week Discharge Disposition: HOME SELF-CARE
[2021-09-24 13:41] VITALS: BP 117/81; PULSE 79; RESP 18
== END 2021-09-24 14:09 | disposition home or self-care (01) ==
LOC: OR 09:56
PROVIDERS: ATTEND Surgery
DX: D24.2 Benign neoplasm of left breast (principal); J45.909 Unspecified asthma, uncomplicated; Z80.1 Family history of malignant neoplasm of trachea, bronchus and lung; Z80.8 Family history of malignant neoplasm of other organs or systems; Z98.890 Other specified postprocedural states; Z79.899 Other long term (current) drug therapy
CPT/HCPCS: 19120; 81025; 88305; J2250; J1100; J2405; J2001; J3010; J2704; J1644

== ENCOUNTER → 2021-10-03 | Outpatient (CLI) | payer BC ==
[2021-10-03 16:42] VITALS: BP 122/82; PULSE 89; RESP 16; TEMP 98.2
--- NOTE | 2021-10-03 16:46 | P.PN ---
Progress Note - Text Progress Note Date: 10/03/21 Theresa is a 26 year old female status post resection of a left breast fibroadenoma on 09-24-21. She has done well post op. Examination: Lungs: Clear Heart: Regular rate and rhythm Incision: Clean and dry Impression: Patient status post excision fibroadenoma left breast patient doing well follow- up in 6 months CC: DR. Adkins
== END ==
LOC: WWCWWP 16:19
PROVIDERS: ATTEND Surgery
DX: Z09 Encounter for follow-up examination after completed treatment for conditions other than malignant neoplasm (principal); Z86.018 Personal history of other benign neoplasm; Z98.890 Other specified postprocedural states

== ENCOUNTER → 2021-12-19 | Outpatient (CLI) | payer OTHER ==
--- NOTE | 2021-12-20 07:49 | US ---
EXAMINATION TYPE: Transabdominal DATE OF EXAM: 12/19/2021 3:24 PM COMPARISON: NONE CLINICAL HISTORY: O09.11 SUPRVSN OF PREG WITH HISTORY OF ECTOPIC PRE. Prior Rt ectopic per patient; EXAM PERFORMED: Transabdominal (TA) EXAM MEASUREMENTS: GESTATIONAL AGE / DATING Physician Established: Not yet established Dates by LMP: (7 weeks/1 day) EDC: 08/06/2022 Dates by First Scan: No previous. Dates by Current Scan for: (7 weeks/ day) EDC: 08/06/22 MATERNAL ANATOMY Uterus: 11.3 x 6.6 x 4.9cm Right Ovary: 2.1 x 1.4 x 1.2cm Left Ovary: 3.4 x 3.3 x 2.0cm Post CDS / Adnexa: wnl Presence of free fluid: no Presence of corpus luteal cyst: not identified today GESTATION / SURVEY CRL: 1.1cm (7 weeks/1 day) Yolk Sac (normal less than 6mm): 3.5mm Heart Rate: 147 bpm Rhythm: Normal IUP: single, live IUP Date of LMP: 10/30/2021 Beta HcG (if available): NA Single, live IUP, 7 weeks/1 day, EDC: 08/06/22, HR 147bpm. IMPRESSION: Single viable intrauterine
== END | disposition home or self-care (01) ==
LOC: RADUSWWP 14:59
PROVIDERS: ATTEND Obstetrics & Gynecology
DX: O09.11 Supervision of pregnancy with history of ectopic pregnancy, first trimester (principal); Z3A.01 Less than 8 weeks gestation of pregnancy
CPT/HCPCS: 76801

== ENCOUNTER 2022-08-04 23:36 | Inpatient (IN) | payer OTHER ==
[2022-08-05] MEDS ORDERED: PENICILLIN G POTASSIUM 5,000,000 UNIT in DEXTROSE 5% IN WATER 100 ML IVPB STA ×2 (00:38)
[2022-08-05] MEDS ORDERED: METHYLERGONOVINE 0.2 MG/ML 1 ML AMP IM PRN (00:38)
[2022-08-05] MEDS ORDERED: LIDOCAINE 0.5% (PF) 5 MG/ML (50 ML SDV) SQ PRN (00:38)
[2022-08-05] MEDS ORDERED: TERBUTALINE 1 MG/ML VIAL SQ PRN (00:38)
[2022-08-05] MEDS ORDERED: CARBOPROST TROMETHAMINE 250 MCG/ML 1 ML AMP IM PRN (00:38)
[2022-08-05] MEDS ORDERED: OXYTOCIN 10 UNIT/ML 1 ML VIAL IM PRN (00:38)
[2022-08-05] MEDS: LACTATED RINGERS 1,000 ML IV SCH ×2 (01:05→09:20)
[2022-08-05 01:25] LABS: Basophils # (A) 0.1 k/uL (0-0.2); Basophils % (A) 1 %; Eosinophils # (A) 0.2 k/uL (0-0.7); Eosinophils % (A) 2 %; HCT 32.2 % (34.0-46.0); HGB 10.3 gm/dL (11.4-16.0); Hypochromasia Slight; Lymphocytes # (A) 1.9 k/uL (1.0-4.8); Lymphocytes % (A) 19 %; MCH 26.6 pg (25.0-35.0); MCHC 31.9 g/dL (31.0-37.0); MCV 83.5 fL (80.0-100.0); Mean Platelet Volume 8.2; Monocytes # (A) 0.6 k/uL (0-1.0); Monocytes % (A) 6 %; Neutrophils % (A) 70 %; Platelet Count 248 k/uL (150-450); Poikilocytosis Slight; RBC 3.86 m/uL (3.80-5.40); RDW 15.6 % (11.5-15.5)
[2022-08-05] MEDS: PENICILLIN G POTASSIUM 2,500,000 UNIT in DEXTROSE 5% IN WATER 100 ML IVPB SCH ×6 (04:44→14:07)
[2022-08-05] MEDS ORDERED: OXYTOCIN 30 UNITS/500 ML NS 30 UNIT in SALINE 1 500ML.BAG IV SCH (06:00)
[2022-08-05] MEDS ORDERED: BUTORPHANOL 1 MG/ML 1 ML VIAL IV PRN (07:14)
--- NOTE | 2022-08-05 07:37 | P.HPOB ---
History of Present Illness H&P Date: 08/05/22 Chief Complaint: My water broke last night This is a 27-year-old 2 para 0010 EDC 08/06/2022 at 39-6/7 weeks' gestation who presented with spontaneous amniorrhexis last night at home. She is positive group B strep, antibiotics given 2 doses. This morning she is more uncomfortable, notably now in active labor. 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 She is , she denies alcohol or drug use, no tobacco use. Family history significant for hypertension diabetes and cancer. ALLERGIES none known. Current medications vitamins daily, Zyrtec as needed, vitamin C daily. Past surgical history breast cord biopsy of the right breast with negative pathology 2020, endoscopy. Past medical history significant for anemia, asthma, eczema. Obstetric history is significant for blood type A+, rubella status nonimmune. VDRL testing, urine culture, hepatitis B surface antigen, HIV testing, gonorrhea and chlamydia cultures all negative. One-hour Glucola 110. Group B strep cultures positive. On exam patient is 5 foot 5 inches, 196 pounds, vital signs are stable and she is afebrile. The general physical exam is within normal limits. The cervix is now 5-6 cm dilated, 100% effaced, -1 station, vertex presentation. heart tones are consistent with reactive NST with excellent overall variability. Uterine contractions are occurring approximately every 3 minutes apart, Pitocin is at 6 mU/m. Impression: 39-6/7 weeks intrauterine , active labor, positive group B strep cultures, antibiotics given 2, requesting epidural. Plan: Anesthesia has been notified regarding epidural request. Continue close maternal and surveillance. Anticipate normal spontaneous vaginal delivery. Review of Systems Constitutional: Reports as per HPI Past Medical History Past Medical History: Asthma, Skin Disorder Additional Past Medical History / Comment(s): Ezcema. History of Any Multi-Drug Resistant Organisms: None Reported Past Surgical History: No Surgical Hx Reported Additional Past Surgical History / Comment(s): Endoscopy procedure at approx age 16 for stomach pain, wisdom teeth. Past Anesthesia/Blood Transfusion Reactions: No Reported Reaction Past Psychological History: Anxiety Smoking Status: Never smoker Past Alcohol Use History: Occasional Past Drug Use History: None Reported - Past Family History Mother Family Medical History: No Reported History Medications and Allergies Home Medications Medication Instructions Recorded Confirmed Type Vit No.180/Iron/Folic 1 each PO QAM 05/24/21 08/04/22 History [ Plus Tablet] Aspirin [Adult Low Dose Aspirin EC] 81 mg PO DAILY 08/04/22 08/04/22 History Ferrous Sulfate [Iron] 08/04/22 History Allergies Allergy/AdvReac Type Severity Reaction Status Date / Time No Known Allergies Allergy Verified 08/04/22 23:48 Exam Vital Signs Temp Pulse Resp BP Pulse Ox 08/05/22 00:20 97.0 F L 83 16 118/85 98 08/04/22 23:42 97.0 F L 83 16 118/85 Intake and Output 08/04/22 08/05/22 08/05/22 22:59 06:59 14:59 Other: # Voids 4 Weight 88.904 kg Results Result Diagrams: 08/05/22 01:08 Abnormal Lab Results - Last 24 Hours (Table) 08/05/22 Range/Units 01:08 Hgb 10.3 L (11.4-16.0) gm/dL Hct 32.2 L (34.0-46.0) % RDW 15.6 H (11.5-15.5) % Assessment and Plan Assessment: Continue close maternal and surveillance. Oxytocin per protocol. Antibiotics as per group B strep protocol. Anticipate normal spontaneous vaginal delivery. Time with Patient: Less than 30
[2022-08-05] MEDS ORDERED: fentaNYL (PF) 50 MCG/ML 5 ML AMP ONE (08:03)
[2022-08-05] MEDS ORDERED: BUPIVACAINE (PF) 0.25% 30 ML VIAL ONE (08:03)
[2022-08-05] MEDS ORDERED: SODIUM CHLORIDE 0.9% 100 ML BAG ONE (08:03)
[2022-08-05] MEDS ORDERED: diphenhydrAMINE 50 MG/ML 1 ML VIAL IVP PRN ×2 (10:16)
[2022-08-05] MEDS ORDERED: diphenhydrAMINE 25 MG CAP PO PRN (10:16)
[2022-08-05] MEDS ORDERED: MEASLES-MUMPS-RUBELLA VACC/PF 12,500 UNIT/0.5 ML VIAL SQ ONE (10:16)
[2022-08-05] MEDS ORDERED: BENZOCAINE/MENTHOL SPRAY 1 GM/SPRAY AEROSOL TOPICAL PRN (10:16)
[2022-08-05] MEDS ORDERED: HYDROCORTISONE 2.5% RECTAL CREAM 30 GM TUBE RECTAL PRN (10:16)
[2022-08-05] MEDS ORDERED: SIMETHICONE 80 MG CHEWABLE PO PRN (10:16)
[2022-08-05] MEDS ORDERED: diphenhydrAMINE ELIXIR 25 MG/10 ML CUP PO PRN (10:16)
[2022-08-05] MEDS ORDERED: LANOLIN CREAM 5 GM TUBE TOPICAL PRN (10:16)
[2022-08-05] MEDS ORDERED: diphenhydrAMINE 50 MG CAP PO PRN (10:16)
[2022-08-05] MEDS ORDERED: ZOLPIDEM 5 MG TAB PO PRN (10:16)
[2022-08-05] MEDS ORDERED: ACETAMINOPHEN TAB 325 MG TAB PO PRN (10:16)
--- NOTE | 2022-08-05 10:16 | P.PROBDLV ---
Vaginal Delivery Note - . Vaginal Delivery Note: This is a 27-year-old female 2 para 0010 EDC 08/06/2022 at 39-6/7 weeks' gestation who presented last night with spontaneous amniorrhexis, clear fluid. is unremarkable, group B strep cultures positive, rubella status nonimmune, blood type A positive. Please see my dictated history and physical for details. Penicillin G was given per protocol, 3 doses received. Oxytocin was started and titrated per protocol. She became uncomfortable, epidural was placed per her request. Patient progressed very well through the first stage of labor was judged to be completely dilated at 0947 hours. Perineal body was prepped and draped in usual sterile fashion. With excellent maternal expulsive efforts the 's head delivered occiput anterior and restituted accordingly. There was a nuchal cord 1 that was reduced. The left or anterior shoulder was delivered easily from underneath the pubic symphysis at which time the oropharynx, nasopharynx, and external nares were all bulb suctioned. Patient was officially delivered of a liveborn female at 0949 hours. Umbilical cord was doubly clamped and ligated, she was handed to waiting nurses for evaluation where scores of 9 and 9 at one and 5 minutes respectively were given. The uterus is then massaged. Placenta delivered spontaneously, noted to be intact with trivascular cord at 0950 hours. Careful inspection now of the cervix, vagina, perineum, periurethral, and perirectal areas revealed a small first-degree perineal laceration. This was repaired in the usual fashion using repeat. All sponge needle and enhancement counts are correct. Fundus is firm and in the midline, symmetric and 18 week size upon completion of delivery. Total estimated blood loss 200 mL's. Infant weighs 3630 g or 8 lbs. 0 oz. Patient and her are allowed to begin the bonding experience in the LDR.
[2022-08-05] MEDS: IBUPROFEN 600 MG TAB PO SCH ×2 (12:23→18:06)
[2022-08-05] MEDS: SENNOSIDES-DOCUSATE SODIUM 1 EACH TAB PO SCH (19:52)
[2022-08-06] MEDS: IBUPROFEN 600 MG TAB PO SCH ×6 (02:37→21:00)
[2022-08-06] MEDS: SENNOSIDES-DOCUSATE SODIUM 1 EACH TAB PO SCH ×2 (07:39→21:01)
--- NOTE | 2022-08-06 08:15 | P.DS ---
Providers Date of admission: 08/04/22 23:58 Expected date of discharge: 08/06/22 Attending physician: Dianne Gonzalez Primary care physician: Stated None - Discharge Diagnosis(es) (1) 39 weeks gestation of Current Visit: Yes Status: Acute (2) GBS (group B Streptococcus carrier), +RV culture, currently Current Visit: Yes Status: Acute (3) Spontaneous rupture of membranes Current Visit: Yes Status: Acute (4) Spontaneous onset of labor Current Visit: Yes Status: Acute (5) Nuchal cord Current Visit: Yes Status: Acute (6) Normal spontaneous vaginal delivery Current Visit: Yes Status: Acute (7) Perineal laceration with delivery, first degree Current Visit: Yes Status: Acute Hospital Course: This is a 27-year-old 2 now para 1011 woman who presented at 39-6/7 weeks' gestation with spontaneous rupture of membranes in active labor. She is known group B strep positive and received group B strep prophylactic antibioti cs. She received Pitocin augmentation. She received an epidural anesthetic in the first stage. She reached complete cervical dilation and had an unremarkable delivery of a liveborn female infant with a nuchal cord 1. Apgars of 9 at 1 minute and 9 at 5 minutes weighing 8 lbs. 0 oz. First-degree perineal laceration was noted and repaired. The patient's course was unremarkable. She was somewhat lightheaded on initial evaluation after delivery however this resolved by day #1. By day #1 she had moderate lochia, her uterus was firm below the level of the umbilicus and she was ambulating and voiding without difficulty. She is tolerating a general diet and she had minimal pain. She is breast-feeding successfully. She was therefore discharged home with routine instructions for care and follow-up. Patient Condition at Discharge: Good Plan - Discharge Summary Discharge Rx Participant: No New Discharge Prescriptions: No Action Ferrous Sulfate [Iron] Vit No.180/Iron/Folic [ Plus Tablet] 1 each PO QAM Aspirin [Adult Low Dose Aspirin EC] 81 mg PO DAILY Discharge Medication List Vit No.180/Iron/Folic [ Plus Tablet] 1 each PO QAM 05/24/21 [History] Aspirin [Adult Low Dose Aspirin EC] 81 mg PO DAILY 08/04/22 [History] Ferrous Sulfate [Iron] 08/04/22 [History]
[2022-08-07] MEDS: IBUPROFEN 600 MG TAB PO SCH ×3 (05:58→15:47)
[2022-08-07 08:07] VITALS: RESP 16
[2022-08-07] MEDS: SENNOSIDES-DOCUSATE SODIUM 1 EACH TAB PO SCH (08:15)
[2022-08-07 16:05] VITALS: BP 118/74; PULSE 78; TEMP 98.3
== END 2022-08-07 19:00 | disposition still patient (30) | DRG 807 ==
LOC: FBPOP 23:36 → 4FBP 23:58
PROVIDERS: ADMIT Obstetrics & Gynecology; ATTEND Obstetrics & Gynecology
PROC: 10E0XZZ Delivery of Products of Conception, External Approach (ICD-10-PCS; principal; 2022-08-05)
PROC: 0HQ9XZZ Repair Perineum Skin, External Approach (ICD-10-PCS; 2022-08-05)
DX: O69.81X0 Labor and delivery complicated by cord around neck, without compression, not applicable or unspecified (principal); Z37.0 Single live birth; O70.0 First degree perineal laceration during delivery; R42 Dizziness and giddiness; O99.824 Streptococcus B carrier state complicating childbirth; Z3A.39 39 weeks gestation of pregnancy; Z79.82 Long term (current) use of aspirin
CPT/HCPCS: 59025; 84112; 85025; 86850; 86900; 86901; 90471; 90707; 99213

== ENCOUNTER 2024-01-21 06:04 | Inpatient (IN) | payer OTHER ==
[2024-01-21] MEDS ORDERED: TRANEXAMIC 1,000 MG/100ML-NACL 1,000 MG in EMPTY BAG 1 BAG IV PRN (06:17)
[2024-01-21] MEDS ORDERED: miSOPROStoL 200 MCG TAB PO PRN (06:17)
[2024-01-21] MEDS ORDERED: CARBOPROST TROMETHAMINE 250 MCG/ML 1 ML AMP IM PRN (06:17)
[2024-01-21] MEDS ORDERED: OXYTOCIN 10 UNIT/ML 1 ML VIAL IM PRN (06:17)
[2024-01-21] MEDS ORDERED: TERBUTALINE 1 MG/ML VIAL SQ PRN (06:17)
[2024-01-21] MEDS ORDERED: METHYLERGONOVINE 0.2 MG/ML 1 ML AMP IM PRN (06:17)
[2024-01-21] MEDS ORDERED: LIDOCAINE 0.5% (PF) 5 MG/ML (50 ML SDV) SQ PRN (06:17)
[2024-01-21 06:28] LABS: Basophils # (A) 0.1 k/uL (0-0.2); Basophils % (A) 1 %; Eosinophils # (A) 0.4 k/uL (0-0.7); Eosinophils % (A) 4 %; HCT 31.7 % (34.0-46.0); HGB 10.3 gm/dL (11.4-16.0); Hypochromasia Moderate; Lymphocytes # (A) 1.9 k/uL (1.0-4.8); Lymphocytes % (A) 21 %; MCH 26.4 pg (25.0-35.0); MCHC 32.3 g/dL (31.0-37.0); MCV 81.8 fL (80.0-100.0); Mean Platelet Volume 9.1; Monocytes # (A) 0.5 k/uL (0-1.0); Monocytes % (A) 5 %; Neutrophils # (A) 5.9 k/uL (1.3-7.7); Neutrophils % (A) 66 %; Platelet Count 248 k/uL (150-450); Poikilocytosis Slight; RBC 3.88 m/uL (3.80-5.40); RDW 15.3 % (11.5-15.5)
--- NOTE | 2024-01-21 08:31 | P.HPOB ---
History of Present Illness H&P Date: 01/21/24 Chief Complaint: Induction of labor Ms. Arreaga is a 28 year old at 40 weeks and 1 day gestation with EDC of 01/20/2024 by 7 week who presents to labor and delivery for induction of labor for post-dates . The patient has been patricia on her own every 5-10 minutes over the past 24 hours and requests amniotomy alone as a means to augment her early labor. We discussed that if not making cervical change after a few hours, pitocin will be recommended. The patient agrees. Her has been notable by a first trimester small subchorionic hematoma, a small endocervical polyp on pelvic exam, and a choroic plexus cyst on anatomy ultrasound that resolved before the subsequent ultrasound. The fetus is estimated in the 42%ile by a 32 week growth ultrasound. work-up: blood type A positive, antibody negative, rubella immune, VDRL non-reactive, HBsAg negative, HIV negative, HCV Ab negative, gonorrhea negative, chlamydia negative, 1 hour GTT within normal limits, GBS negative. s/p flu and TDap vaccines during the . Past Medical History Past Medical History: Asthma, Skin Disorder Additional Past Medical History / Comment(s): Ezcema. History of Any Multi-Drug Resistant Organisms: None Reported Past Surgical History: No Surgical Hx Reported, Breast Surgery Additional Past Surgical History / Comment(s): Endoscopy procedure at approx age 16 for stomach pain, wisdom teeth. 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 Past Anesthesia/Blood Transfusion Reactions: No Reported Reaction Past Psychological History: Anxiety Smoking Status: Never smoker Past Alcohol Use History: Occasional Past Drug Use History: None Reported - Past Family History Mother Family Medical History: No Reported History Medications and Allergies Home Medications Medication Instructions Recorded Confirmed Type Vit No.180/Iron/Folic 1 each PO QAM 05/24/21 01/21/24 History [ Plus Tablet] Aspirin [Adult Low Dose Aspirin EC] 81 mg PO DAILY 08/04/22 01/21/24 History Allergies Allergy/AdvReac Type Severity Reaction Status Date / Time No Known Allergies Allergy Verified 01/21/24 06:14 Exam Vital Signs Temp Pulse Resp BP Pulse Ox 01/21/24 06:14 96.8 F L 72 16 122/83 98 Intake and Output 01/20/24 01/21/24 01/21/24 22:59 06:59 14:59 Other: Weight 89.811 kg Focused physical exam is performed. This is a healthy-appearing in no apparent distress. Breathing is non-labored. Abdomen is gravid and non-tender. Cervical exam is 4 cm, 70 effacement, -2 station. AROM is undertaken with clear fluid noted. Extremities non-tender and non-edematous. heart tones are Category I and tocometer is graphing contractions every 7-10 minutes. Results Result Diagrams: 01/21/24 06:18 Abnormal Lab Results - Last 24 Hours (Table) 01/21/24 Range/Units 06:18 Hgb 10.3 L (11.4-16.0) gm/dL Hct 31.7 L (34.0-46.0) % Assessment and Plan Assessment: 28 year old at 40 weeks and 1 day presenting for induction of labor Plan: Admit, clear liquid diet, expectant management s/p amniotomy, will start pitocin if no cervical change. Continuous EFM and tocometer, close monitoring of patient. Epidural prn. Time with Patient: Less than 30
[2024-01-21] MEDS: OXYTOCIN 30 UNITS/500 ML NS 30 UNIT in SALINE 1 500ML.BAG IV SCH (10:53)
[2024-01-21] MEDS ORDERED: ROPIVACAINE 5 MG/ML 30 ML VIAL ONE (13:31)
[2024-01-21] MEDS ORDERED: fentaNYL (PF) 50 MCG/ML 5 ML AMP ONE (13:31)
[2024-01-21] MEDS ORDERED: SODIUM CHLORIDE 0.9% 250 ML BAG ONE (13:31)
[2024-01-21] MEDS ORDERED: BENZOCAINE/MENTHOL SPRAY 1 GM/SPRAY AEROSOL TOPICAL PRN (15:02)
[2024-01-21] MEDS ORDERED: SIMETHICONE 80 MG CHEWABLE PO PRN (15:02)
[2024-01-21] MEDS ORDERED: IBUPROFEN 600 MG TAB PO PRN (15:02)
[2024-01-21] MEDS ORDERED: LANOLIN CREAM 1 GM TUBE TOPICAL PRN (15:02)
[2024-01-21] MEDS ORDERED: ZOLPIDEM 5 MG TAB PO PRN (15:02)
[2024-01-21] MEDS ORDERED: ACETAMINOPHEN TAB 325 MG TAB PO PRN (15:02)
[2024-01-21] MEDS ORDERED: HYDROCORTISONE 2.5% RECTAL CREAM 30 GM TUBE RECTAL PRN (15:02)
[2024-01-21] MEDS ORDERED: diphenhydrAMINE 25 MG CAP PO PRN (15:02)
[2024-01-21] MEDS ORDERED: diphenhydrAMINE 50 MG/ML 1 ML VIAL IVP PRN ×2 (15:02)
[2024-01-21] MEDS ORDERED: diphenhydrAMINE 50 MG CAP PO PRN (15:02)
--- NOTE | 2024-01-21 15:02 | P.PROBDLV ---
Vaginal Delivery Note - . Vaginal Delivery Note: DATE OF SERVICE: 01/21/2024 PROCEDURE: Normal Vaginal Delivery ATTENDING: Dr. Elsi Valle MD ESTIMATED BLOOD LOSS: 300 mL FINDINGS: VFI, Apgars 9/9. Weight 3860 PROCEDURE: Ms. Arreaga is a 28 year old at 40 weeks and 1 day presenting to labor and delivery for induction of labor for post-dates . The has been uncomplicated. For further details, please review the admitting H&P. AROM we performed at 817, revealing clear amniotic fluid. Pitocin was titrated per protocol. The patient received epidural anesthesia per her request. The patient was completely dilated at 1358. The patient pushed twice and a viable female infant was delivered at 1408. The was placed on the maternal abdomen and bulb suctioned. The infant was noted to be spontaneously crying. Cord was clamped and cut after a 30-second delay. The infant was handed off to the pediatric team. Placenta was delivered whole with gentle cord traction at 1410. Oxytocin was started to facilitate uterine tone. Uterine fundus was found to be firm and below the umbilicus upon fundal massage. Thorough examination of the cervix, vagina, periurethral area, and perineum revealed a small second degree laceration that was infiltrated with lidocaine and repaired with 2-0 Vicryl in the usual fashion. The patient is stable and allowed to begin the bonding process.
[2024-01-21] MEDS: LACTATED RINGERS 1,000 ML IV SCH (16:36)
[2024-01-21] MEDS: SENNOSIDES-DOCUSATE SODIUM 1 EACH TAB PO SCH (20:51)
[2024-01-22 06:52] LABS: Basophils # (A) 0.1 k/uL (0-0.2); Basophils % (A) 1 %; Eosinophils # (A) 0.3 k/uL (0-0.7); Eosinophils % (A) 2 %; HCT 28.6 % (34.0-46.0); HGB 9.3 gm/dL (11.4-16.0); Hypochromasia Slight; Lymphocytes # (A) 2.3 k/uL (1.0-4.8); Lymphocytes % (A) 19 %; MCH 26.5 pg (25.0-35.0); MCHC 32.5 g/dL (31.0-37.0); MCV 81.5 fL (80.0-100.0); Mean Platelet Volume 8.2; Monocytes # (A) 0.7 k/uL (0-1.0); Monocytes % (A) 6 %; Neutrophils # (A) 8.5 k/uL (1.3-7.7); Neutrophils % (A) 71 %; Platelet Count 222 k/uL (150-450); Poikilocytosis Slight; RBC 3.51 m/uL (3.80-5.40); RDW 15.1 % (11.5-15.5)
--- NOTE | 2024-01-22 08:59 | P.DS ---
Providers Date of admission: 01/21/24 06:04 Expected date of discharge: 01/22/24 Attending physician: Elsi Valle MD Primary care physician: Stated None Hospital Course: Ms. Gordon is a 28 year old now PPD#1 s/p normal vaginal delivery after induction of labor for post-dates . The patient is doing well this morning and had no acute events overnight. She has no complaints this morning. She reports minimal lochia, passing flatus, voiding without difficulty, ambulating, and eating/drinking without nausea or vomiting. doing well at bedside. She denies chest pain, shortness of breathing, fevers, or chills overnight. She denies pain or swelling in the legs. restrictions are reviewed with the patient including pelvic rest for 6 weeks. The patient is encouraged to call the office if she experiences any heavy bleeding, foul- smelling discharge, breast complaints, or any if she has any other concerns. She will follow up in the office with in 6 weeks for exam. The patient plans to use Motrin and Tylenol OTC as needed for pain. All questions are answered. Assessment: 28 year old now PPD#1 s/p normal vaginal delivery Patient Condition at Discharge: Good Plan - Discharge Summary New Discharge Prescriptions: No Action Vit No.180/Iron/Folic [ Plus Tablet] 1 each PO QAM Aspirin [Adult Low Dose Aspirin EC] 81 mg PO DAILY Discharge Medication List Vit No.180/Iron/Folic [ Plus Tablet] 1 each PO QAM 05/24/21 [History] Aspirin [Adult Low Dose Aspirin EC] 81 mg PO DAILY 08/04/22 [History] Follow up Appointment(s)/Referral(s): Elsi Valle MD [STAFF PHYSICIAN] - 6 Weeks Activity/Diet/Wound Care/Special Instructions: Instructions 1. Do not begin any exercise program for 3 weeks. 2. Do not resume sexual relations for 6 weeks or longer if uncomfortable. 3. You may take tub baths or showers at any time. 4. You may use tampons if desired after 6 weeks. 5. Keep any areas repaired with stitches clean and dry. 6. If you are not nursing, wear a good fitting, supportive bra during the day and limit fluid intake for at least 1 week to prevent breast engorgement. 7. Call the office, , within the next week to make appointment for your 6 week checkup if it has not already been made. 8. Report any of the following occurrences to the doctor promptly: a. Heavy, excessive bleeding b. Chills, fever c. Burning or frequency of urination d. Pain or redness and breasts if nursing e. Increasing pain or swelling of vulva (stitches). In addition to the above instructions, the following additional should be followed: 1. No heavy lifting or straining (exercising) until after 6 week checkup. 2. Keep abdominal incision clean and dry: You may wear a dressing if more comfortable. 3. Make office appointment for 2 weeks after delivery date. Discharge Disposition: HOME SELF-CARE
[2024-01-22 09:33] VITALS: BP 117/78; PULSE 79; RESP 16; TEMP 98.5
== END 2024-01-22 15:37 | disposition home or self-care (01) | DRG 807 ==
LOC: 4FBP 06:04
PROVIDERS: ADMIT Obstetrics & Gynecology; ATTEND Obstetrics & Gynecology
PROC: 0KQM0ZZ Repair Perineum Muscle, Open Approach (ICD-10-PCS; principal; 2024-01-21)
PROC: 10E0XZZ Delivery of Products of Conception, External Approach (ICD-10-PCS; principal; 2024-01-21)
PROC: 10907ZC Drainage of Amniotic Fluid, Therapeutic from Products of Conception, Via Natural or Artificial Opening (ICD-10-PCS; 2024-01-21)
PROC: 3E033VJ Introduction of Other Hormone into Peripheral Vein, Percutaneous Approach (ICD-10-PCS; 2024-01-21)
DX: O48.0 Post-term pregnancy (principal); Z37.0 Single live birth; J45.909 Unspecified asthma, uncomplicated; O70.1 Second degree perineal laceration during delivery; O99.52 Diseases of the respiratory system complicating childbirth; Z3A.40 40 weeks gestation of pregnancy; L30.9 Dermatitis, unspecified; O99.72 Diseases of the skin and subcutaneous tissue complicating childbirth; Z79.82 Long term (current) use of aspirin; Z79.899 Other long term (current) drug therapy
CPT/HCPCS: 85025; 86850; 86900; 86901